=== PATIENT | female | born 1935 | race Caucasian/White ===

== ENCOUNTER 2020-05-13 13:08 | Outpatient (CLI) | payer MEDICARE, SELFPAY ==
--- NOTE | 2020-05-13 13:17 | MM_ITS ---
WS: [id number] BILATERAL DIGITAL SCREENING MAMMOGRAPHY WITH CAD CLINICAL INFORMATION: SCREENING HISTORY: Screening mammogram. No current complaints. COMPARISON: TECHNIQUE: Bilateral CC and MLO views. FINDINGS: The breasts are composed of heterogeneous fibroglandular density tissue, which can limit the detectio n of small underlying mass lesions. No suspicious mass, asymmetry, calcifications, or architectural d istortion. No evidence of malignancy. Lucent centered calcifications. Vascular calcification. MM/[place] [id number] IMPRESSION: BI-RADS: 2-Benign FOLLOW UP: 1 Year Follow-up Recommend return to annual screening mammography.
== END 2020-05-13 13:09 | disposition home or self-care (01) ==
LOC: RADSHAW 13:14
PROVIDERS: PCP Family Medicine; Visit Provider Family Medicine
DX: Z12.31 Encounter for screening mammogram for malignant neoplasm of breast (principal)
CPT/HCPCS: 77067

== ENCOUNTER 2020-07-17 06:37 | Outpatient (CLI) | payer MEDICARE, SELFPAY ==
--- NOTE | 2020-07-17 07:17 | NMCV_ITS ---
NM ginna perf SPECT r/s* [id number] Fiorella Anderson Age: 84 Gender: F : 1935 Exam Date: 07/17/2020 07:58 Ordering Phys: Pavel Blake MD Technologist: MENDOZA Lewis Exam Location: [facility] Indications: Chest pain STRESS TEST Please see separate stress test report in [facility] for full findings IMAGE PROTOCOL Rest/Stress 1 Lexiscan Day Radiopharmaceutical Dose (mCi) Administration Site Administered by Rest: Tc-99m 10.6 IV Gracie Adela, FEATHEREDGE MACHINE OPERATOR Sestamibi Stress:Tc-99m 32.2 IV Gracie Adela, FEATHEREDGE MACHINE OPERATOR Sestamibi Rest: 17-Jul-2020 60 Discovery 630 Stress: 17-Jul-2020 45 Discovery 630 0.4mg Lexiscan. Images obtained in supine and prone position. SPECT RESULTS Technical Quality: Excellent Raw Data Analysis: Normal Image Corrections: No attenuation or motion correction applied Summed Stress Score: 0 Summed Rest Score: 0 Summed Difference Score: 0 PERFUSION FINDINGS SPECT images demonstrate homogeneous tracer distribution throughout the myocardium. FUNCTIONAL RESULTS (calculated via Gated SPECT) Stress Image LV EF (%): 83 Stress EDV (mL):58 TID: 0.8 Stress ESV (mL):10 FUNCTIONAL FINDINGS: There is normal left ventricular systolic function. IMPRESSIONS 1. Normal myocardial perfusion without evidence of ischemia 2. Normal LV systolic function. Julian Moss MD (Electronically Signed) Final Date: 17 July 2020 13:42 S
--- NOTE | 2020-07-17 07:17 | ECG_ITS ---
[facility] Test Date: 2020-07-17 Pat Name: Fiorella Anderson Department: Room: Gender: Female Facility Mechanic: : 1935 Requested By: Pavel Clifton Order Number: [id number] MD: Julian Moss M.D. Interpretive Statements NAME OF STUDY: LEXISCAN SESTAMIBI STRESS TEST INDICATION: [Chest Pain, ] Procedure: At the baseline, the blood pressure was 155/79 mmHg,with a heart rate of 57 bpm. The electrocardiogram showed normal sinus rhythm with no significant ST T wave changes. Lexiscan was infused over a period of 20 seconds. A total of 0.4 mg of Lexiscan was infused. Stress phase was continued for a total of 5 minutes. Heart rate at the end of stress phase was 90 bpm. Blood pressure was 50/62 mmHg. The EKG at the peak infusion revealed sinus rhythm with occasional PVCs. Sestamibi was injected 20 seconds after the Lexiscan infusion. Blood pressure at the end of recovery phase was 150/67 mmHg. Heart rate was 87 bpm Conclusion: 1. Normal EKG response to Lexiscan infusion. 2. No Lexiscan induced chest pain or cardiac arrhythmia. 3. Normal heart rate and blood pressure response. 4. Sestamibi/sestamibi perfusion scan pending; see separate report. Electronically Signed On 07-24-2020 17:18:33 CDT by Julian Moss M.D. [email or web address]
[2020-07-17 07:19] VITALS: BMI 23.3
[2020-07-17] MEDS: regadenoson 0.4 Mg/5 ml Syringe IVP (08:45)
[2020-07-17 08:58] VITALS: BP 150/67; PULSE 87
== END 2020-07-17 06:38 | disposition home or self-care (01) ==
LOC: CDL 06:42
PROVIDERS: PCP Family Medicine; Visit Provider Family Medicine
DX: R07.9 Chest pain, unspecified (principal)
CPT/HCPCS: 78452; 93017; A9500; J2785

== ENCOUNTER 2021-04-02 08:07 | Outpatient (CLI) | payer MEDICARE, SELFPAY ==
--- NOTE | 2021-04-02 08:22 | FL_ITS ---
WS: [id number] UPPER GI WITH SMALL BOWEL FOLLOW-THROUGH HISTORY: ANEMIA COMPARISON: None available. FLUOROSCOPIC TIME: 1.6 minutes. Double contrast upper GI examination was performed. Patient swallowed the barium mixture with no difficulty. No esophageal stricture or mass. Stomach dis tended well with contrast. Duodenal bulb was distensible pliable. There is a large duodenal diverticu lum filling with contrast. No irregularity in the wall. Moderate amount of reflux into the esophagus at least to the level of the marcos. There is also an in termittently visualized reducible hiatal hernia. Small bowel follow-through. Barium transited the small bowel at 45 minutes. No small bowel strictures or dilatation. No mass or o bstruction. Normal appearance of the right lower quadrant. FL/FL upperGI air smallbowel ser* IMPRESSION: 1. Moderate-sized duodenal diverticulum. 2. Unremarkable small bowel follow-through. 3. Gastroesophageal reflux to the marcos. 4. Small reducible hiatal hernia.
== END 2021-04-02 08:08 | disposition home or self-care (01) ==
LOC: RADWPI 08:12
PROVIDERS: PCP Family Medicine; Visit Provider Family Medicine
DX: D64.9 Anemia, unspecified (principal); K57.10 Diverticulosis of small intestine without perforation or abscess without bleeding; K21.9 Gastro-esophageal reflux disease without esophagitis; K44.9 Diaphragmatic hernia without obstruction or gangrene
CPT/HCPCS: 74246; 74248

== ENCOUNTER 2021-05-24 12:36 | Outpatient (CLI) | payer MEDICARE, SELFPAY ==
--- NOTE | 2021-05-24 13:12 | MM_ITS ---
WS: [id number] BILATERAL DIGITAL SCREENING MAMMOGRAPHY WITH CAD CLINICAL INFORMATION: SCREENING HISTORY: Screening mammogram. No current complaints. COMPARISON: May 13, 2020 TECHNIQUE: Bilateral CC and MLO views. FINDINGS: Scattered fibroglandular densities bilaterally. No suspicious focal mass, asymmetry, calcifications, or architectural distortion. No evidence of malignancy. Punctate and lucent centered calcifications. Vascular calcification. MM/[place] [id number] IMPRESSION: BI-RADS: 2-Benign FOLLOW UP: 1 Year Follow-up Recommend return to annual screening mammography.
== END 2021-05-24 12:37 | disposition home or self-care (01) ==
LOC: RADSHAW 12:42
PROVIDERS: PCP Family Medicine; Visit Provider Family Medicine
DX: Z12.31 Encounter for screening mammogram for malignant neoplasm of breast (principal)
CPT/HCPCS: 77067

== ENCOUNTER → 2022-02-21 08:32 | Outpatient (BNVA) | payer MEDICARE, SELFPAY | PROVIDERS: PCP Family Medicine; Referring Provider Family Medicine; Visit Provider Nurse Practitioner Family | DX: N39.0 Urinary tract infection, site not specified (principal) | CPT/HCPCS: 81003 ==

== ENCOUNTER → 2022-03-23 13:33 | Outpatient (BNVA) | payer MEDICARE, SELFPAY | PROVIDERS: PCP Family Medicine; Visit Provider Family Medicine | DX: R53.83 Other fatigue (principal); M25.50 Pain in unspecified joint; M60.9 Myositis, unspecified | CPT/HCPCS: 80053; 84550; 85025; 85651; 86140; 86618; 86666; 86757 ==

== ENCOUNTER → 2022-03-31 14:49 | Outpatient (BNVA) | payer MEDICARE, SELFPAY | PROVIDERS: PCP Family Medicine; Visit Provider Family Medicine | DX: R10.84 Generalized abdominal pain (principal); N39.0 Urinary tract infection, site not specified | CPT/HCPCS: 81000; 81002; 87077; 87086; 87184 ==

== ENCOUNTER 2022-04-08 06:31 | Outpatient (CLI) | payer MEDICARE, SELFPAY ==
--- NOTE | 2022-04-08 | US_ITS ---
WS: [id number] Exam: US abdomen complete* [id number] Date/Time of Exam: 04/08/2022 6:45 AM Reason For Exam: ABD PAIN AND RECURRENT UTI'S A 1.23 cm cyst is noted in the left lobe of the liver. The liver is otherwise unremarkable. The abdom inal aorta is normal in caliber. The IVC is patent. The portal vein demonstrates hepatopedal flow. Th e pancreas is unremarkable as visualized. A 5 mm polypoid lesion is seen in the neck of the gallbladd er most likely representing a polyp. No sign of acute cholecystitis or shadowing calculi. Common bile duct is not dilated and measures 2.4 mm at greatest diameter. A 3.4 cm cyst is seen at the upper eusebio e of the right kidney. The right kidney is otherwise unremarkable and measures 10.2 x 4 x 4.4 cm. The spleen is unremarkable. The left kidney contains a 2.4 cm cyst. The left kidney is otherwise unremar kable and measures 9.3 x 4.1 x 3.14 cm. No abdominal mass or ascites identified. US/US abdomen complete* [id number] IMPRESSION: 1. 5 mm polyp noted in the neck of the gallbladder. 2. 3.4 cm right renal cyst, 2.4 cm left renal cyst. 3. 1.23 cm cyst in the left lobe of the liver. 4. No mass, ascites or other significant finding in the abdomen.
== END 2022-04-08 06:32 | disposition home or self-care (01) ==
LOC: RAD 06:34
PROVIDERS: PCP Family Medicine; Visit Provider Family Medicine
DX: R10.84 Generalized abdominal pain (principal); N39.0 Urinary tract infection, site not specified; K76.89 Other specified diseases of liver; N28.1 Cyst of kidney, acquired; K82.4 Cholesterolosis of gallbladder
CPT/HCPCS: 76700

== ENCOUNTER → 2022-04-14 13:42 | Outpatient (BNVA) | payer MEDICARE, SELFPAY | PROVIDERS: PCP Family Medicine; Visit Provider Urology | DX: N39.0 Urinary tract infection, site not specified (principal) | CPT/HCPCS: 81003; 99213 ==

== ENCOUNTER → 2022-06-03 10:00 | Outpatient (BNVA) | payer MEDICARE, SELFPAY | PROVIDERS: PCP Family Medicine; Visit Provider Urology | DX: N39.0 Urinary tract infection, site not specified (principal) | CPT/HCPCS: 81003; 99213 ==

== ENCOUNTER 2022-06-24 13:03 | Outpatient (CLI) | payer MEDICARE, SELFPAY ==
--- NOTE | 2022-06-24 13:16 | MM_ITS ---
WS: [id number] Bilateral screening 3D tomosynthesis digital mammogram, 06/24/2022 Clinical Data: SCREENING Comparison: 05/24/2021, 05/13/2020, 04/02/2019, 03/14/2018, 03/08/2017, 03/07/2016. 5. 04/18/2015, 02/17/2015, 02/07/2014, 01/29/2013, 12/29/2011, 12/15/2010, 12/08/2009, 12/03/2008, 11/20/2007, 10/30, 11/08/2006. Findings: The breast parenchymal pattern shows fibroglandular tissue No spiculated masses or clustered calcific ations are seen. There are no secondary signs of carcinoma. There are benign calcifications throughou t the breasts. There are mole markers on the right breast. MM/[place] [id number] Impression: 1. Negative bilateral mammogram unchanged. 2. Recommend annual screening mammograms. BIRADS: 1-Negative FOLLOW UP: 1 Year Follow-up The CAD tray checker was used.
== END 2022-06-24 13:04 | disposition home or self-care (01) ==
LOC: RAD 13:04
PROVIDERS: PCP Family Medicine; Visit Provider Family Medicine
DX: Z12.31 Encounter for screening mammogram for malignant neoplasm of breast (principal)
CPT/HCPCS: 77063; 77067

== ENCOUNTER 2022-07-04 08:15 | Emergency (ER) | payer MEDICARE, SELFPAY ==
[2022-07-04 08:19] VITALS: BP 185/89; PULSE 73; RESP 18; TEMP 36.8; O2SAT 96; BMI 23.3
--- NOTE | 2022-07-04 08:27 | XRR_ITS ---
PROCEDURE INFORMATION: Exam: XR Abdomen Exam date and time: 07/04/2022 8:51 AM Age: 86 years old Clinical indication: Abdominal pain; Generalized; Prior surgery; Surgery type: Hyst, appy; Additional info: Abd pain TECHNIQUE: Imaging protocol: Radiologic exam of the abdomen. Views: Frontal supine view of the abdomen. 1 View. COMPARISON: US abdomen complete* [id number] 04/08/2022 6:52 AM FINDINGS: Gastrointestinal tract: There is a non-obstructive bowel gas pattern. There is no abnormal dilatation of bowel loops. Some gas and fecal material is seen throughout the colon, suggestive of mild constipation. There is no pneumatosis or mass effect. There is no organomegaly. Intraperitoneal space: No definite free air on the supine view exam. Bones/joints: There are no acute osseous abnormalities noted. Mild levoconvex scoliosis of the mid lumbar spine is seen with associated severe disc space narrowing/degenerative disc disease changes. Mild bilateral hip, symphysis pubis and sacroiliac joint degenerative changes are seen. Soft tissues: No radiopaque foreign body or abnormal opacity. XR/XR KUB portable [id number] IMPRESSION: Nonobstructive bowel gas pattern. Mild constipation.
--- NOTE | 2022-07-04 08:33 | PC.NURSE ---
pt reports stomach cramps since Monday and is constipated. reports a small BM yesterday. pt reports she took ibuprofen this morning with improvement of pain. reports vomited on Monday but none since. denies fevers. denies dysuria. pt reports currently on antibiotics almost all year for recurrent kidney infections.
[2022-07-04 08:55] LABS: Basophils # 0.1 10^3/uL (0.0-0.1); Basophils % 0.8 %; Eosinophils # 0.1 10^3/uL (0.0-0.8); Eosinophils % 1.9 %; Hematocrit 35.5 % (37.0-47.0); Hemoglobin 11.5 g/dL (11.5-15.3); Lymphocytes # 1.2 10^3/uL (0.8-4.8); Lymphocytes % 20.2 %; Mean Corpuscular HGB Conc 32.4 g/dL (30.0-36.0); Mean Corpuscular Hemoglobin 32.5 pg (28.0-34.0); Mean Corpuscular Volume 100.3 fl (81-99); Mean Platelet Volume 9.6 fL (7.4-10.4); Monocytes # 0.6 10^3/uL (0.2-0.9); Monocytes % 9.4 %; Neutrophils # 3.99 10^3/uL (1.8-7.7); Neutrophils % 67.4 %; Nucleated Red Blood Cells % 0 %; Platelet Count 181 10^3/cmm (130-400); Red Blood Count 3.54 10^6/uL (4.1-5.3); Red Cell Distribution Width 13.5 % (12.1-15.1); White Blood Count 5.9 10^3/uL (4.0-10.0)
[2022-07-04 09:13] LABS: Alanine Aminotransferase 16 U/L (0-33); Albumin Level 4.1 g/dL (3.5-5.2); Alkaline Phosphatase 69 U/L (35-105); Aspartate Amino Transferase 24 U/L (0-32); Blood Urea Nitrogen 17 mg/dL (8-23); Calcium 9.9 mg/dL (8.5-10.5); Carbon Dioxide 28 mmol/L (22-29); Chloride 103 mmol/L (98-107); Globulin 1.8 g/dL (1.3-4.6); Glucose 124 mg/dL (65-115); Lipase 44 U/L (13-60); Osmolality Calculated 293 mOsm/kg (285-295); Sodium 140 mmol/L (136-145); Total Bilirubin 0.4 mg/dL (0.15-1.2); Total Protein 5.9 g/dL (6.6-8.7)
[2022-07-04 09:16] LABS: Anion Gap 13.7 (5-19); Creatinine Clr Calc Pharmacy 40.1845; Potassium 4.7 mmol/L (3.5-5.1)
--- NOTE | 2022-07-04 09:38 | PC.PHAR ---
pt states she takes care of her own medications-pt states she takes hydralazine 50mg bid rx filled 50mg tid on 06/13/22 60d/s-notes are made in the pharmacy comments
--- NOTE | 2022-07-04 10:02 | ED_ITS ---
HPI - Abdominal Pain General: Chief Complaint: Abdominal Pain Stated Complaint: abd pain, constipation, n/v Time Seen by Provider: 07/04/22 08:26 History of Present Illness: 86-year-old female presents to the emergency room with complaints of abdominal discomfort and constipation no bowel movements last several days denies hematochezia melena hematemesis coffee-ground emesis is stil l passing gas had a single episode of vomiting yesterday. MD elicited complaint: abdominal pain Pertinent past history: constipation Onset (ago): day(s) (2) Pain Consistency: intermittent Location: Diffuse Severity: mild Quality: cramping Radiation: none Migration to: no migration Exacerbating factors: nothing Relieving factors: nothing Associated Symptoms: Reports bloating, change in bowel habits, constipation and GI cramping; Denies anorexia, belching, change in stool character, chills, coffee ground emesis, diarrhea, dyspepsia, dysuria, excessive flatus, fever(s), heartburn, hematochezia, hematuria, hematemesis, fecal incontinence, loose stools, melena, nausea, poor appetite, syncope and vomiting Review of Systems Const: Denies: fever(s) or chills ENMT: Denies: throat pain, ear or mastoid pain, nasal discharge or nasal congestion Card: Denies: chest pain or syncope Resp: Denies: dyspnea, productive cough or non-productive cough GI: Reports: abdominal pain, constipation, bloating, GI cramping and change in bowel habits; Denies: nausea, vomiting, hematemesis, coffee ground emesis, heartburn, diarrhea, belching, excessive flatus, fecal incontinence, change in stool character, hematochezia or melena : Denies: flank pain, difficulty voiding, dysuria, urinary frequency, urinary urgency or hematuria Skin/Breast: Denies: rash or pruritus PFSH ED PFSH: Medical History HTN (hypertension) Recurrent UTI CHRONIC CYSTITIS Surgical History Hx of eye surgery Hx of hysterectomy Hx of tubal ligation Family History Father , AT 85 Stroke Mother , AT 89 Cancer BREAST Social History Smoking and tobacco status: never smoked Alcohol intake: never Marital status: / Current occupational status: retired History of recent travel: No Physical Exam Const: COMMON NORMALS: no acute distress GENERAL APPEARANCE: cooperative and comfortable ORIENTATION/CONSCIOUSNESS: Yes awake, Yes oriented to person, Yes oriented to place and Yes oriented to time HENMT: COMMON NORMALS: normocephalic, atraumatic, hearing grossly normal bilaterally, external ears normal, EAC's normal, TM's normal bilaterally, Normal nasal mucous membranes and turbinates present, moist oral mucous membranes and oropharynx normal HEAD & SCALP: normocephalic and atraumatic NOSE: Normal nasal mucous membranes and turbinates present EXTERNAL EAR: Yes external ears normal EXTERNAL AUDITORY CANAL: EAC's normal TYMPANIC MEMBRANE: TM's normal bilaterally Eye: COMMON NORMALS: Equal, round and reactive pupils present, EOMs intact bilaterally, conjunctivae normal and no scleral icterus CONJUNCTIVA: Yes conjunctivae normal PUPIL: Yes Equal, round and reactive pupils present Neck/C-Spine: COMMON NORMALS: full ROM, no lymphadenopathy, supple and no JVD Lymph: LYMPHATIC: no lymphadenopathy noted and no lymphedema noted Resp: COMMON NORMALS: normal respiratory effort, No retractions, No use of accessory muscles and clear to auscultation bilaterally AUSCULTATION: clear to auscultation bilaterally Cardio: COMMON NORMALS: no JVD, regular rate, regular rhythm and No murmurs present (Cardio) RATE: regular rate RHYTHM: regular rhythm GI: COMMON NORMALS: Soft to palpation and No hepatosplenomegaly present AUSCULTATION: Yes normoactive bowel sounds PALPATION: Yes Soft to palpation, No Tenderness to palpation present (GI), No Guarding due to palpation present ( GI) and Yes No hepatosplenomegaly present Extremity: COMMON NORMALS: normal to inspection, capillary refill normal, no clubbing, cyanosis or edema, no calf tenderness and no pedal edema Neuro: SENSORIUM/ORIENTATION: Yes oriented to person, Yes oriented to place and Yes oriented to time Skin: COMMON NORMALS: no rashes or lesions noted GENERAL SKIN EXAM: no rashes or lesions noted Course Vital Signs: Vital signs: Vital Signs Temperature 98.2 F 07/04/22 08:19 Pulse Rate 62 07/04/22 10:14 Respiratory Rate 18 07/04/22 10:14 Blood Pressure 167/83 07/04/22 10:14 Pulse Oximetry 96 07/04/22 10:14 Oxygen Delivery Me thod 07/04/22 08:19 MDM - Abdominal Pain Medical Decision Making Labs and imaging reviewed. Lactulose to relieve immediate constipation start Colace 1 p.o. twice daily for ongoing prevention. Follow-up with primary care if needed. Medical Records I reviewed the patient's medical records. Lab Data I reviewed the patient's lab results. : 07/04/22 08:47 07/04/22 08:47 Labs/Radiology: Radiology Impressions KUB X-Ray 07/04/22 08:27 IMPRESSION: Nonobstructive bowel gas pattern. Mild constipation. Laboratory Results WBC 5.9 10^3/uL (4.0-10.0) 07/04/22 08:47 RBC 3.54 10^6/uL (4.1-5.3) L 07/04/22 08:47 Hgb 11.5 g/dL (11.5-15.3) 07/04/22 08:47 Hct 35.5 % (37.0-47.0) L 07/04/22 08:47 MCV 100.3 fl (81-99) H 07/04/22 08:47 MCH 32.5 pg (28.0-34.0) 07/04/22 08:47 MCHC 32.4 g/dL (30.0-36.0) 07/04/22 08:47 RDW 13.5 % (12.1-15.1) 07/04/22 08:47 Plt Count 181 10^3/cmm (130-400) 07/04/22 08:47 MPV 9.6 fL (7.4-10.4) 07/04/22 08:47 Neut % (Auto) 67.4 % 07/04/22 08:47 Lymph % (Auto) 20.2 % 07/04/22 08:47 [place] % (Auto) 9.4 % 07/04/22 08:47 Eos % (Auto) 1.9 % 07/04/22 08:47 Baso % (Auto) 0.8 % 07/04/22 08:47 Neut # (Auto) 3.99 10^3/uL (1.8-7.7) 07/04/22 08:47 Lymph # (Auto) 1.2 10^3/uL (0.8-4.8) 07/04/22 08:47 [place] # (Auto) 0.6 10^3/uL (0.2-0.9) 07/04/22 08:47 Eos # (Auto) 0.1 10^3/uL (0.0-0.8) 07/04/22 08:47 Baso # (Auto) 0.1 10^3/uL (0.0-0.1) 07/04/22 08:47 Nucleated RBC % (auto) 0 % 07/04/22 08:47 Nucleated RBCs # 0.0 /100WBC 07/04/22 08:47 Sodium 140 mmol/L (136-145) 07/04/22 08:47 Potassium 4.7 mmol/L (3.5-5.1) 07/04/22 08:47 Chloride 103 mmol/L (98-107) 07/04/22 08:47 Carbon Dioxide 28 mmol/L (22-29) 07/04/22 08:47 Anion Gap 13.7 (5-19) 07/04/22 08:47 BUN 17 mg/dL (8-23) 07/04/22 08:47 Creatinine 1.0 mg/dL (0.5-0.9) H 07/04/22 08:47 GFR Calculation Not Reportable 07/04/22 08:47 Glucose 124 mg/dL (65-115) H 07/04/22 08:47 Calculated Osmolality 293 mOsm/kg (285-295) 07/04/22 08:47 Calcium 9.9 mg/dL (8.5-10.5) 07/04/22 08:47 Total Bilirubin 0.4 mg/dL (0.15-1.2) 07/04/22 08:47 AST 24 U/L (0-32) 07/04/22 08:47 ALT 16 U/L (0-33) 07/04/22 08:47 Alkaline Phosphatase 69 U/L (35-105) 07/04/22 08:47 Total Protein 5.9 g/dL (6.6-8.7) L 07/04/22 08:47 Albumin 4.1 g/dL (3.5-5.2) 07/04/22 08:47 Globulin 1.8 g/dL (1.3-4.6) 07/04/22 08:47 Lipase 44 U/L (13-60) 07/04/22 08:47 Urine Color Colorless (Yellow) 07/04/22 09:58 Urine Appearance Clear (CLEAR) 07/04/22 09:58 Urine pH 6.5 (5-7) 07/04/22 09:58 Ur Specific Gibbs 1.010 (1.005-1.030) 07/04/22 09:58 Urine Protein Neg (Negative) 07/04/22 09:58 Urine Glucose (UA) Norm (Normal) 07/04/22 09:58 Urine Ketones Negative (Negative) 07/04/22 09:58 Urine Blood Neg (Negative) 07/04/22 09:58 Urine Nitrate Negative (Negative) 07/04/22 09:58 Urine Bilirubin Neg (Negative) 07/04/22 09:58 Urine Urobilinogen Norm mg/dL (Negative) 07/04/22 09:58 Ur Leukocyte Esterase Negative (Negative) 07/04/22 09:58 Discharge Plan Discharge Patient Disposition: Home Clinical Impression: Constipation Condition: Stable Prescriptions: No Action allopurinol 300 mg tablet 300 mg PO QAM carvedilol 25 mg tablet 25 mg PO BID Rx Instructions: must administer with a meal/food ascorbic acid (vitamin C) 1,000 mg tablet 1 g PO QAM Multivitamin Women 50 Plus 8 mg iron-400 mcg-300 mcg tablet 1 tab PO DAILY cholecalciferol (vitamin D3) 125 mcg (5,000 unit) capsule 125 mcg PO DAILY hydralazine 50 mg tablet 50 mg PO BID lisinopril-hydrochlorothiazide 20-25 mg tablet 1 tab PO BID latanoprost 0.005 % drops 1 drp ophthalmic (eye) BEDTIME omeprazole 20 mg capsule,delayed release(DR/EC) 20 mg PO DAILY PRN (Reason: Acid Reflux) lactulose 10 gram/15 mL solution 10 g PO DAILY albuterol sulfate 90 mcg/actuation HFA aerosol inhaler 2 puff INHALATION Q4H PRN (Reason: Shortness Of Breath) Qty: 8.5 12RF hydrocodone-acetaminophen 5-325 mg tablet 1 tab PO BID PRN (Reason: pain) 30 Days Qty: 20 0RF methenamine hippurate 1 gram tablet 1 g PO BID Qty: 60 12RF Rx Instructions: Take 1000 mg of vitamin C with each dose of methenamine ondansetron HCl 4 mg tablet 4 mg PO Q6H PRN (Reason: Nausea And Vomiting) alprazolam 0.25 mg tablet 0.25 mg PO BID PRN (Reason: Anxiety) ibuprofen 200 mg Tablet 400 mg PO Q6H PRN (Reason: Pain) Claritin 10 mg Tablet 10 mg PO QAM cefuroxime axetil 500 mg tablet 500 mg PO BID [id number]-[id number]-[id number]-hops 490 mg Capsule 2 - 4 cap PO BID Discharge Orders: Discharge ED (Routine); Ordered 07/04/22 Ordered By: Justice Medrano Referrals: Pavel Blake MD [Primary Care Provider] - Discharge Diet: Clear Liquid Discharge Activity: Increase activity as tolerated Patient Instructions: Opioid Safety Activity Restrictions/Additional Instructions: Recommend starting Colace 1 tablet twice daily. Follow-up with your primary care doctor within the week. Use lactulose today every 4 to 6 hours until desired result achieved and symptoms relieved. You can also use home enemas. Coding Level of Care Code ED Cottrell Blower for Henry Eldridge
[2022-07-04 10:11] LABS: Add Urine Microscopic? NO; Charge for UA Resulting for Rev
[2022-07-04 10:14] VITALS: BP 167/83; PULSE 62; RESP 18; O2SAT 96
[2022-07-04 10:15] LABS: Bilirubin Urine Neg (Negative); Blood Urine Neg (Negative); Glucose Urine UA Norm (Normal); Ketones Urine Negative (Negative); Nitrate Urine Negative (Negative); Protein Urine Neg (Negative); Urine Appearance Clear (CLEAR); Urine Color Colorless (Yellow); pH Urine 6.5 (5-7)
[2022-07-04 10:16] LABS: Leukocyte Esterase Urine Negative (Negative); Urobilinogen Urine Norm (Negative)
== END 2022-07-04 10:16 | disposition home or self-care (01) ==
PROVIDERS: Emergency Provider Family Medicine; PCP Family Medicine
DX: K59.00 Constipation, unspecified (principal); I10 Essential (primary) hypertension
CPT/HCPCS: 74018; 80053; 81003; 83690; 85025; 99284

== ENCOUNTER → 2022-07-15 11:08 | Outpatient (BNVA) | payer MEDICARE, SELFPAY | PROVIDERS: PCP Family Medicine; Visit Provider Nurse Practitioner Family | DX: N39.0 Urinary tract infection, site not specified (principal) | CPT/HCPCS: 99213 ==

== ENCOUNTER → 2022-07-28 12:26 | Outpatient (BNVA) | payer MEDICARE, SELFPAY | PROVIDERS: PCP Family Medicine; Visit Provider Nurse Practitioner Family | DX: N39.0 Urinary tract infection, site not specified (principal) | CPT/HCPCS: 81003 ==

== ENCOUNTER 2022-08-09 12:45 | Outpatient (CLI) | payer MEDICARE, SELFPAY ==
--- NOTE | 2022-08-09 13:10 | XRR_ITS ---
PROCEDURE INFORMATION: Exam: XR Chest Exam date and time: 08/09/2022 1:14 PM Age: 86 years old Clinical indication: Shortness of breath. TECHNIQUE: Imaging protocol: Radiologic exam of the chest. Views: 2 views. COMPARISON: No relevant prior studies available. FINDINGS: Lungs: The lungs are hyperinflated compatible with COPD. Prior pulmonary granulomatous disease. Calcified right hilar lymph node from prior granulomatous disease. No pneumonia or pulmonary edema. Pleural spaces: No pleural effusion or pneumothorax. Heart/Mediastinum: The cardiac silhouette is not enlarged. The mediastinal contours are normal. Bones/joints: Slight curvature of the upper thoracic spine convex to the right. Mild multilevel disc degeneration in the thoracic spine. XR/XR chest 2V* [id number] IMPRESSION: 1. COPD. 2. Prior granulomatous disease.
== END 2022-08-09 12:46 | disposition home or self-care (01) ==
LOC: RAD 12:47
PROVIDERS: PCP Family Medicine; Visit Provider Family Medicine
DX: J44.9 Chronic obstructive pulmonary disease, unspecified (principal); R06.00 Dyspnea, unspecified; R53.83 Other fatigue; M79.10 Myalgia, unspecified site; M19.90 Unspecified osteoarthritis, unspecified site; I10 Essential (primary) hypertension
CPT/HCPCS: 71046; 80053; 82306; 82607; 83735; 83880; 84443; 84550; 86140

== ENCOUNTER 2022-09-08 11:20 | Outpatient (CLI) | payer MEDICARE, SELFPAY ==
[2022-09-08 12:06] LABS: Total Volume Urine 1400 ml
[2022-09-08 12:35] LABS: Uric Acid 24 HR Urine 7.9 mg/24 HR (150-990)
== END 2022-09-08 11:21 | disposition home or self-care (01) ==
PROVIDERS: PCP Family Medicine; Visit Provider Urology
DX: N39.0 Urinary tract infection, site not specified (principal)
CPT/HCPCS: 84560

== ENCOUNTER → 2022-10-18 08:39 | Outpatient (BNVA) | payer MEDICARE, SELFPAY | PROVIDERS: PCP Family Medicine; Visit Provider Urology | DX: N39.0 Urinary tract infection, site not specified (principal) | CPT/HCPCS: 81003; 99213 ==

== ENCOUNTER → 2023-03-16 09:41 | Outpatient (BNVA) | payer MEDICARE, SELFPAY | PROVIDERS: PCP Family Medicine; Visit Provider Urology | DX: N39.0 Urinary tract infection, site not specified (principal); N94.9 Unspecified condition associated with female genital organs and menstrual cycle | CPT/HCPCS: 52000; 99213 ==

== ENCOUNTER → 2023-06-26 08:33 | Outpatient (BNVA) | payer MEDICARE, SELFPAY | PROVIDERS: PCP Family Medicine; Visit Provider Family Medicine | DX: I10 Essential (primary) hypertension (principal); Z00.00 Encounter for general adult medical examination without abnormal findings | CPT/HCPCS: 80053; 80061; 85025 ==

== ENCOUNTER 2023-07-20 11:26 | Outpatient (CLI) | payer MEDICARE, SELFPAY ==
--- NOTE | 2023-07-20 11:42 | MM_ITS ---
WS: [id number] BILATERAL SCREENING DIGITAL TOMOSYNTHESIS MAMMOGRAM WITH CAD HISTORY: SCREENING COMPARISON: 06/24/2022 and 05/24/2021 Bilateral CC and MLO views with tomosynthesis and synthetic mammography submitted. Computer aided det ection analyzed. Breast composition: The breasts are heterogeneously dense, which may obscure small masses. No suspici ous masses, microcalcifications or architectural distortion. Extensive bilateral breast arterial calc ifications and benign round calcifications. IMPRESSION: MM/[place] [id number] BI-RADS: 2-Benign FOLLOW UP: 1 Year Follow-up
== END 2023-07-20 11:27 | disposition home or self-care (01) ==
PROVIDERS: PCP Family Medicine; Visit Provider Family Medicine
DX: Z12.31 Encounter for screening mammogram for malignant neoplasm of breast (principal)
CPT/HCPCS: 77063; 77067

== ENCOUNTER → 2023-08-28 10:04 | Outpatient (BNVA) | payer MEDICARE, SELFPAY | PROVIDERS: PCP Family Medicine; Visit Provider Podiatrist Foot & Ankle Surgery | DX: L60.8 Other nail disorders (principal); L60.3 Nail dystrophy | CPT/HCPCS: 99203 ==

== ENCOUNTER 2023-10-04 13:48 | Outpatient (CLI) | payer MEDICARE, SELFPAY ==
--- NOTE | 2023-10-04 14:00 | XR_ITS ---
WS: [id number] DEXA (DUAL ENERGY X-RAY ABSORPTIOMETRY) Bone mineral density was performed using a [employer] machine. HISTORY: screening COMPARISON: 10/19/2017 Lumbar spine BMD (L1-L4): 1.459 g/cm2 T score: 2.3 Z score: 4.2 Total hip BMD: Left: 0.953 g/cm2. T score: -0.4 Z score: 1.9 Right: 0.943 g/cm2. T score: -0.5 Z score: 1.8 10 year probability of a major osteoporotic fracture is 23.2%. Compared to the prior study from 10/19/2017. Lumbar spine bone mineral density has increased by 7.5%. Bilateral hips bone mineral density has decreased by 4.1%. IMPRESSION: NORMAL BONE MINERAL DENSITY based upon the WHO classification for females. Significant increase in bone mineral density lumbar spine and decreased bone mineral density in the h ips since the prior study.
== END 2023-10-04 13:49 | disposition home or self-care (01) ==
PROVIDERS: PCP Family Medicine; Visit Provider Family Medicine
DX: Z13.820 Encounter for screening for osteoporosis (principal)
CPT/HCPCS: 77080

== ENCOUNTER → 2023-12-12 10:59 | Outpatient (BNVA) | payer MEDICARE, SELFPAY | PROVIDERS: PCP Family Medicine; Visit Provider Family Medicine | DX: I10 Essential (primary) hypertension (principal); R73.9 Hyperglycemia, unspecified; M19.90 Unspecified osteoarthritis, unspecified site; M79.10 Myalgia, unspecified site | CPT/HCPCS: 80053; 83036; 85025 ==

== ENCOUNTER → 2023-12-25 10:04 | Outpatient (BNVA) | payer MEDICARE, SELFPAY | PROVIDERS: PCP Family Medicine; Visit Provider Podiatrist Foot & Ankle Surgery | DX: L60.3 Nail dystrophy (principal) | CPT/HCPCS: 99213 ==

== ENCOUNTER → 2024-01-24 09:32 | Outpatient (BNVA) | payer MEDICARE, SELFPAY | PROVIDERS: PCP Family Medicine; Visit Provider Surgery | DX: R10.9 Unspecified abdominal pain; G89.29 Other chronic pain | CPT/HCPCS: 99204 ==

== ENCOUNTER 2024-02-01 14:42 | Outpatient (CLI) | payer MEDICARE, SELFPAY ==
--- NOTE | 2024-02-01 16:00 | CT_ITS ---
WS: [id number] Examination: CT abdomen pelvis wo con [id number] Reason for Exam: R10.9 - Unspecified abdominal pain Date: February 01, 2024 Comparison: June 07, 2015 DLP: 314.[address] scans at [facility] use at least one of these dose optimization techniques: automated e xposure control; mA and/or kV adjustment per patient size (includes targeted exams where dose is matc hed to clinical indication); or iterative reconstruction. Findings: There is no pleural effusion or extreme basilar consolidation. The heart is prominent in size. The liver is normal in size and appearance on this noncontrast study. The gallbladder is present. The re is a small calcification suspected in the wall of the gallbladder. This was present previously. Th ere is a cyst along the margin of the left lobe of the liver. The spleen is not enlarged. There is a stable 15 mm left adrenal nodule. The right adrenal gland is unremarkable. There is no kidney stone or hydronephrosis. Cysts are identified on the kidneys today which have deve loped in the interval. The largest cyst measures 4 cm on the right. There is no ureteral stone or dil atation. There is no bladder stone. The pancreas is grossly unremarkable. Small scattered mesenteric lymph nodes are identified. The aorta is extensively calcified but not dilated. Abdominal vessel calcification is identified. 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 There is increased stool within the colon. There is uncomplicate d diverticulosis. Questionable wall thickening of the rectum is noted Prominent lumbar degenerative changes are identified. There is increased soft tissue density identifi ed posterior to the lower sacrum and coccyx. No soft tissue air is identified. Impression: There is no small bowel obstruction. There is no free fluid or free air. Stool is increased within the colon. Good delineation of the rectum is incomplete on this study, wall thickening is of concern. There is a stable left adrenal nodule. New renal cysts are present..
[2024-02-01] MEDS: iohexol 300 mg/mL 100 mL Btl PO (16:09)
== END 2024-02-01 14:43 | disposition home or self-care (01) ==
LOC: RAD 14:42
PROVIDERS: PCP Family Medicine; Visit Provider Surgery
DX: R10.9 Unspecified abdominal pain (principal); G89.29 Other chronic pain; N28.1 Cyst of kidney, acquired; E27.9 Disorder of adrenal gland, unspecified
CPT/HCPCS: 74176; Q9967

== ENCOUNTER → 2024-02-28 13:42 | Outpatient (BNVA) | payer MEDICARE, SELFPAY | PROVIDERS: PCP Family Medicine; Visit Provider Surgery | DX: R10.9 Unspecified abdominal pain (principal); G89.29 Other chronic pain; Z09 Encounter for follow-up examination after completed treatment for conditions other than malignant neoplasm | CPT/HCPCS: 99213 ==

== ENCOUNTER 2024-03-19 05:53 | Day surgery (SDC) | payer MEDICARE, SELFPAY ==
--- NOTE | 2024-03-19 06:05 | P.HPUD_ITS ---
Surgery/Procedure H&P Update DATE OF PROCEDURE: March 19, 2024 DATE H&P PERFORMED: 02/28/24 H&P UPDATE INFORMATION: I have reviewed H&P completed within last 30 days, I have examined patient prior to procedure, No changes to prior documentation and H&P is in [facility] EMR on date indicated PLANNED PROCEDURE: Operation Date: 03/19/24 07:00 Proposed Procedures p Colonoscopy 01699, G0105, R10.9(Not Applicable) - Preston Olivera MD
[2024-03-19 06:09] VITALS: BP 150/65; PULSE 48; RESP 16; TEMP 36.6; O2SAT 95; BMI 23.6
[2024-03-19] MEDS: sodium chloride 0.9% 1,000 ML 30 ML IV (06:23)
--- NOTE | 2024-03-19 06:42 | ANES.PREANE2 ---
Pre-Anesthetic Assessment Height/Weight: Height 1.68 m Weight 66.224 kg Temp Pulse Resp BP Pulse Ox O2 Del Method 98 F 48 L 16 150/65 95 Room Air 03/19/24 06:09 03/19/24 06:09 03/19/24 06:09 03/19/24 06:09 03/19/24 06:09 03/19/24 06:09 Preop Diagnosis: screening Operation Date: 03/19/24 07:00 Proposed Procedures p Colonoscopy 04474, G0105, R10.9(Not Applicable) - Preston Olivera MD Was Beta Ana Maria taken within 24 hours: N/A Was Clonidine taken within 24 hours: N/A Last intake: Intake Last Liquid Date 03/18/24 Last Liquid Time 22:30 Last Solid Date 03/17/24 Last Solid Time 20:00 Social No alcohol and No tobacco Exam alert, oriented x 3, clear to auscultation bilaterally and regular rate & rhythm Airway Submandibular: within normal limits Cervical ROM: within normal limits Mallampati: Class II History/ROS No significant history except as noted and No significant complaints Pulmonary Asthma paitent reports shortness of breath with unknown etiolgy. states it has been since Covid. CV/HEM Atrial Fibrillation, Stable Angina and Hypertension irregular heart beat not currently seeing a heart doctor None reported Hepatic None reported GI None reported Metabolic None reported Musc/skel None reported Neuropsych Anxiety and Depression Anesthetic Plan ASA status: 3 Anesthesia: Anesthesia Evaluation and MAC Risk of > 500 ml blood loss (7ml/kg in children): Yes, adequate IV access and fluids planned Medications/Allergies Home Medications Medication Instructions Recorded Confirmed Last Taken Type ascorbic acid (vitamin C) 1,000 mg 1 g PO QAM 02/21/22 03/19/24 03/18/24 History tablet cholecalciferol (vitamin D3) 125 125 mcg PO DAILY 02/21/22 03/19/24 03/18/24 History mcg (5,000 unit) capsule latanoprost 0.005 % eye drops 1 drp ophthalmic (eye) BEDTIME 02/21/22 03/19/24 03/18/24 History oubdipvt-lixn-wnko 8 mg-folic 400 1 tab PO DAILY 02/21/22 03/19/24 03/18/24 History mcg-K 50 mcg-lutein 300 mcg tablet (Multivitamin Women 50 Plus) omeprazole 20 mg capsule,delayed 20 mg PO DAILY PRN Acid Reflux 02/21/22 03/14/24 Unknown History release collagen-hyaluronic 2 - 4 cap PO BID 07/04/22 03/19/24 03/18/24 History ngal-hfnespebjg-xsrn extract 490 mg capsule ibuprofen 200 mg tablet 400 mg PO Q6H PRN Pain 07/04/22 03/14/24 07/04/22 History loratadine 10 mg tablet (Claritin) 10 mg PO QAM 07/04/22 03/19/24 03/18/24 History albuterol sulfate 90 mcg/actuation 2 puff inhalation Q4H PRN 07/06/22 03/19/24 03/16/24 Rx aerosol inhaler Shortness Of Breath #8.5 grams lactulose 10 gram/15 mL oral 10 g PO DAILY 07/15/22 03/19/24 03/18/24 History solution methenamine hippurate 1 gram tablet 1 g PO BID #180 tabs 03/16/23 03/19/24 02/24/23 Rx cefuroxime axetil 500 mg tablet 500 mg PO PRN PRN uti 08/28/23 03/14/24 Unknown History alprazolam 0.25 mg tablet 0.25 mg PO BID PRN Anxiety #60 tabs 10/28/23 03/19/24 03/18/24 Rx allopurinol 300 mg tablet 300 mg PO QAM #90 tabs 10/31/23 03/19/24 03/18/24 Rx carvedilol 25 mg tablet 25 mg PO BID #180 tabs 10/31/23 03/19/24 03/19/24 Rx hydrocodone 5 mg-acetaminophen 325 1 tab PO BID PRN pain 1 month #45 03/12/24 03/14/24 03/12/24 Rx mg tablet tabs ondansetron HCl 4 mg tablet 4 mg PO Q6H PRN Nausea And 03/13/24 03/14/24 03/14/24 Rx Vomiting #60 tabs hydralazine 50 mg tablet 50 mg PO TID 03/14/24 03/19/24 03/18/24 History lisinopril 20 1 tab PO BID 03/14/24 03/19/24 03/18/24 History mg-hydrochlorothiazide 25 mg tablet Allergies Allergy/AdvReac Type Severity Reaction Status Date / Time ciprofloxacin [From Cipro] Allergy Intermediate UNKNOWN Verified 03/14/24 09:26 sulfamethoxazole Allergy Intermediate UNKNOWN Verified 03/14/24 09:26 [From Bactrim] trimethoprim [From Bactrim] Allergy Intermediate UNKNOWN Verified 03/14/24 09:26 amlodipine Allergy Mild swelling Verified 03/14/24 09:26 alendronate sodium Allergy CRITICAL Verified 03/14/24 09:26 [From Fosamax] amitriptyline [From Elavil] Allergy CRITICAL Verified 03/14/24 09:26 metoprolol Allergy Unknown Verified 03/14/24 09:26 pseudoephedrine Allergy CRITICAL Verified 03/14/24 09:26 Current Medications Generic Name Dose Route Start Last Admin Trade Name Freq PRN Reason Stop Dose Admin Sodium Chloride 1,000 mls @ 30 mls/hr 03/19/24 06:00 03/19/24 06:23 Sodium Chloride 0.9% IV 30 mls/hr .Q24H TRISHA Administration PFSH Anesthesia Medical History (Updated 02/28/24 @ 13:58 by Beatrice Kauffman MA) Myalgia Arthritis HTN (hypertension) Recurrent UTI CHRONIC CYSTITIS Surgical History Hx of eye surgery Hx of hysterectomy Hx of tubal ligation Family History Father , AT 85 Stroke Mother , AT 89 Cancer BREAST Social History Smoking and tobacco/nicotine status: never used tobacco/nicotine Alcohol intake: never Substance/Drug Use: never Marital status: / Current occupational status: retired Data Anesthesia Cardiac Studies: Sestamibi Stress Test (Cardiology) 07/17/20
[2024-03-19 07:24] VITALS: BP 150/71; PULSE 57; RESP 18; TEMP 36.4; O2SAT 97
[2024-03-19 07:34] VITALS: BP 150/82; PULSE 60; RESP 18; O2SAT 96
[2024-03-19 07:45] VITALS: BP 155/78; PULSE 53; RESP 18; O2SAT 97
--- NOTE | 2024-03-19 08:05 | ANE.PACU2 ---
Inpatient post-anesthesia follow up: Airway intact: Yes Vital signs: Temperature 97.6 F Pulse Rate 53 Respiratory Rate 18 Blood Pressure 155/78 Pulse Oximetry 97 Oxygen Delivery Me thod Room Air Oxygen Flow Rate Fraction of Inspir ed Oxygen Hydration adequate: Yes Nausea and vomiting: No Pain level: 1 Mental status: Baseline
== END 2024-03-19 08:05 | disposition home or self-care (01) ==
PROVIDERS: PCP Family Medicine; Visit Provider Surgery
PROC: 0DJD8ZZ Inspection of Lower Intestinal Tract, Via Natural or Artificial Opening Endoscopic (ICD-10-PCS; CPT 45378; principal; 2024-03-19 07:00)
DX: R10.9 Unspecified abdominal pain (principal); G89.29 Other chronic pain; D12.0 Benign neoplasm of cecum; D12.4 Benign neoplasm of descending colon; D12.3 Benign neoplasm of transverse colon; I48.91 Unspecified atrial fibrillation; I10 Essential (primary) hypertension; M19.90 Unspecified osteoarthritis, unspecified site
CPT/HCPCS: 45380; 45385; 88305; J2371; J2704; J7030

== ENCOUNTER → 2024-04-02 13:59 | Outpatient (BNVA) | payer MEDICARE, SELFPAY | PROVIDERS: PCP Family Medicine; Visit Provider Surgery | DX: Z09 Encounter for follow-up examination after completed treatment for conditions other than malignant neoplasm (principal) | CPT/HCPCS: 99213 ==

== ENCOUNTER 2024-07-24 11:47 | Outpatient (CLI) | payer MEDICARE, SELFPAY ==
--- NOTE | 2024-07-24 11:48 | MM_ITS ---
WS: [email or web address] Bilateral screening 3D tomosynthesis digital mammogram, 07/24/2024 11:48 AM Clinical Data: SCREENING Comparison: 06/19/2023, 06/24/2022, 05/24/2021, 05/13/2020, 04/02/2019, 03/14/2018, 03/08/2017, 03/07/2016, 03/04, 02/17/2015, 02/07/2014, 01/29/2013, 12/29/2011, 12/15/2010, 12/08/2009, 12/03/2008, 11/20/2008, 11/12/2007, 11/08/2006. Findings: No spiculated masses or clustered calcifications are seen. There are no secondary signs of carcinoma . The breast show heterogeneous density with multiple benign calcifications and small vessel calcific ations. MM/MM scr BI tomosynthesis [id number] Impression: Negative bilateral mammogram unchanged. Recommend annual screening mammograms. BIRADS: 1 - Negative FOLLOW UP: 1 Year Follow-up DENSITY: The breasts are heterogeneously dense, which may obscure small masses. The CAD material checker was used
== END 2024-07-24 11:48 | disposition home or self-care (01) ==
LOC: RAD 11:47
PROVIDERS: PCP Family Medicine; Visit Provider Family Medicine
DX: Z12.31 Encounter for screening mammogram for malignant neoplasm of breast (principal); R92.333 Mammographic heterogeneous density, bilateral breasts; R92.1 Mammographic calcification found on diagnostic imaging of breast
CPT/HCPCS: 77063; 77067

== ENCOUNTER → 2024-09-10 10:50 | Outpatient (BNVA) | payer MEDICARE, SELFPAY | PROVIDERS: PCP Family Medicine; Visit Provider Family Medicine | DX: N39.0 Urinary tract infection, site not specified (principal); F41.9 Anxiety disorder, unspecified; M19.90 Unspecified osteoarthritis, unspecified site; I10 Essential (primary) hypertension | CPT/HCPCS: 80053; 80061; 81000; 84550; 85025 ==

== ENCOUNTER → 2025-03-18 07:33 | Outpatient (BNVA) | payer MEDICARE, SELFPAY | PROVIDERS: PCP Family Medicine; Visit Provider Family Medicine | DX: R73.9 Hyperglycemia, unspecified (principal); I10 Essential (primary) hypertension; E78.5 Hyperlipidemia, unspecified | CPT/HCPCS: 80053; 80061; 85025 ==

== ENCOUNTER → 2025-06-11 09:39 | Outpatient (BNVA) | payer MEDICARE, SELFPAY | PROVIDERS: PCP Family Medicine; Referring Provider Family Medicine; Visit Provider Internal Medicine Rheumatology | DX: M25.50 Pain in unspecified joint (principal); Z79.899 Other long term (current) drug therapy; Z71.85 Encounter for immunization safety counseling; M10.9 Gout, unspecified | CPT/HCPCS: 99204 ==

== ENCOUNTER 2025-06-13 10:01 | Outpatient (CLI) | payer MEDICARE, SELFPAY ==
--- NOTE | 2025-06-13 10:13 | XR_ITS ---
WS: [email or web address] Right hand, 3 views, 06/13/2025 Clinical Data: M25.50 - Pain in unspecified joint Comparison: None. Findings: No fractures or dislocations are seen. The soft tissues are unremarkable. There is osteoarthritis of the IP joints of the right thumb and fingers of the right hand. No periarticular demineralization or calcifications are seen. XR/XR hand RT min 3V* [id number] Impression: Osteoarthritis of the IP joints of the right thumb and fingers of the right destinee joiner
--- NOTE | 2025-06-13 10:13 | XR_ITS ---
WS: [email or web address] Right foot, 3 views, 06/13/2025 Clinical Data: M25.50 - Pain in unspecified joint Comparison: None. Findings: No fractures or dislocations are seen. No bone destruction or erosion is noted. There is a small bunion at the head of the right first metatarsal. The soft tissues are normal. XR/XR foot RT min 3V* [id number] Impression: Small bunion at the head of the right first metatarsal.
--- NOTE | 2025-06-13 10:13 | XR_ITS ---
WS: [email or web address] Cervical spine, 3 views, 06/13/2025 Clinical Data: M54.2 - Cervicalgia Comparison: None. Findings: No compression fractures are seen. There is disc narrowing at C4-C5 through C7-T1. There is osteoarthritis of the C4-C7 vertebral bodies. There is no prevertebral soft tissue swelling. The odontoid is unremarkable. There is loss of normal lordotic curvature. The soft tissues of the neck show calcification at the left carotid bifurcation.. XR/XR cervical spine 3V* [id number] Impression: Multilevel disc narrowing and osteoarthritis of the cervical vertebral bodies.
--- NOTE | 2025-06-13 10:13 | XR_ITS ---
WS: [email or web address] Left foot, 3 views, 06/13/2025 Clinical Data: M25.50 - Pain in unspecified joint Comparison: None. Findings: No fractures or dislocations are seen. No bone destruction or erosion is noted. There is a small bunion at the head of the left first metatarsal. The soft tissues are normal.. XR/XR foot LT min 3V* [id number] Impression: Small bunion at head of the left first metatarsal.
--- NOTE | 2025-06-13 10:13 | XR_ITS ---
WS: [email or web address] Left hand, 3 views, 06/13/2025 Clinical Data: M25.50 - Pain in unspecified joint Comparison: None. Findings: No fractures or dislocations are seen. The soft tissues are unremarkable. There is osteoarthritis of the IP joints of the left thumb and the fingers of the left hand. There is minimal osteoarthritis of the left CMC joint. XR/XR hand LT min 3V* [id number] Impression: 1. Osteoarthritis of the IP joints of the left thumb and fingers of the left evans nd. 2. Osteoarthritis of the left CMC joint.
--- NOTE | 2025-06-13 10:13 | XR_ITS ---
WS: [email or web address] Lumbar spine, AP and lateral views, 06/13/2025 Clinical Data: M54.50 - Low back pain, unspecified Comparison: Lumbar spine, 09/11/2017 Findings: There is osteoarthritis of all the lumbar vertebral bodies with degenerative disc narrowing at all levels. There is loss of the normal lordotic curvature. The loss of superior cortical height of the L2-L5 vertebral bodies is the same. There is a minimal levoscoliosis. XR/XR lumbar spine 2-3V* [id number] Impression: 1. Degenerative disc narrowing at multiple levels along with endplate compressi on at multiple levels. 2. Minimal levoscoliosis with osteoarthritis.
--- NOTE | 2025-06-13 10:13 | XR_ITS ---
WS: [email or web address] Thoracic spine, AP and lateral views, 06/13/2025 Clinical Data: M54.9 - Dorsalgia, unspecified Comparison: None. Findings: No compression fractures are seen. The disc heights are normal. The paravertebral regions are normal. Minimal osteoarthritic spurring is present at the mid and lower thoracic vertebral bodies. 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
[2025-06-13 11:38] LABS: Hematocrit 35.7 % (36-47); Hemoglobin 11.70 g/dL (11.27-16.99); Mean Corpuscular HGB Conc 32.8 g/dL (30-55); Mean Corpuscular Hemoglobin 31.7 pg (27-33); Mean Corpuscular Volume 96.7 fl (85-98); Nucleated Red Blood Cells % 0 %; Platelet Count 203 10^3/cmm (157-399); Red Blood Count 3.69 10^6/uL (3.85-5.65); White Blood Count 9.11 10^3/uL (3.29-11.43)
[2025-06-13 12:07] LABS: Alanine Aminotransferase 12 U/L (0-33); Albumin Level 4.2 g/dL (3.5-5.2); Alkaline Phosphatase 72 U/L (35-105); Aspartate Amino Transferase 19 U/L (0-32); Globulin 2.6 g/dL (1.3-4.6); Total Protein 6.8 g/dL (6.6-8.7); Uric Acid 4.7 mg/dL (2.4-5.7)
[2025-06-13 12:18] LABS: Hepatitis B Surface Antigen Non-Reactive (Nonreactive)
[2025-06-18 03:45] LABS: Mutated Citrullinated Vimentin <20 U/mL (<20)
== END 2025-06-13 10:02 | disposition home or self-care (01) ==
PROVIDERS: PCP Family Medicine; Visit Provider Internal Medicine Rheumatology
DX: M47.814 Spondylosis without myelopathy or radiculopathy, thoracic region (principal); M47.26 Other spondylosis with radiculopathy, lumbar region; M19.042 Primary osteoarthritis, left hand; M18.12 Unilateral primary osteoarthritis of first carpometacarpal joint, left hand; M19.041 Primary osteoarthritis, right hand; M50.33 Other cervical disc degeneration, cervicothoracic region; M50.321 Other cervical disc degeneration at C4-C5 level; M47.892 Other spondylosis, cervical region; M21.612 Bunion of left foot; M21.611 Bunion of right foot
CPT/HCPCS: 36415; 72040; 72072; 72100; 73130; 73630; 80076; 82306; 82565; 83520; 84550; 85025; 85651; 86140; 86200; 86431; 86480; 86704; 86803; 87340

== ENCOUNTER 2025-07-04 12:03 | Outpatient (CLI) | payer MEDICARE, SELFPAY | END 2025-07-04 12:04 | disposition home or self-care (01) | LOC: LAB 12:04 | PROVIDERS: PCP Family Medicine; Visit Provider Internal Medicine Rheumatology | DX: Z79.899 Other long term (current) drug therapy (principal) | CPT/HCPCS: 36415; 82657 ==

== ENCOUNTER 2025-08-27 12:30 | Outpatient (CLI) | payer MEDICARE, SELFPAY ==
--- NOTE | 2025-08-27 12:41 | MM_ITS ---
WS: [email or web address] BILATERAL 3D TOMOSYNTHESIS DIGITAL SCREENING MAMMOGRAPHY WITH CAD CLINICAL INFORMATION: SCREENING HISTORY: Screening mammogram. No current complaints. COMPARISON: 2023 TECHNIQUE: Bilateral CC and MLO views. FINDINGS: The breasts are composed of heterogeneous fibroglandular density tissue, which can limit the detection of small underlying mass lesions. No suspicious mass, asymmetry, calcifications, or architectural distortion. No evidence of malignancy. Vascular calcification. Stable bilateral dystrophic and punctate calcifications. MM/MM Psychiatric tomosynthesis [id number] IMPRESSION: DENSITY: The breasts are heterogeneously dense, which may obscure small masses. BI-RADS: 2 - Benign FOLLOW UP: 1 Year Follow-up Recommend return to annual screening mammography.
== END 2025-08-27 12:31 | disposition home or self-care (01) ==
LOC: RAD 12:33
PROVIDERS: PCP Family Medicine; Visit Provider Family Medicine
DX: Z12.31 Encounter for screening mammogram for malignant neoplasm of breast (principal); R92.1 Mammographic calcification found on diagnostic imaging of breast; R92.333 Mammographic heterogeneous density, bilateral breasts; R92.323 Mammographic fibroglandular density, bilateral breasts
CPT/HCPCS: 77063; 77067

== ENCOUNTER → 2025-09-17 10:53 | Outpatient (BNVA) | payer MEDICARE, SELFPAY | PROVIDERS: PCP Family Medicine; Visit Provider Family Medicine | DX: N39.0 Urinary tract infection, site not specified (principal) | CPT/HCPCS: 81000 ==

== ENCOUNTER → 2025-10-09 14:48 | Outpatient (BNVA) | payer MEDICARE, SELFPAY | PROVIDERS: PCP Family Medicine; Visit Provider Family Medicine | DX: L98.9 Disorder of the skin and subcutaneous tissue, unspecified (principal) | CPT/HCPCS: 88305 ==